=== PATIENT | female | born 1960 | race Caucasian/White ===

== ENCOUNTER 2023-10-16 11:05 | Emergency (ER) | payer OTHER, SELFPAY ==
[2023-10-16 11:21] VITALS: BP 150/100
--- NOTE | 2023-10-16 12:19 | ED.GENMED ---
History of Present Illness
General
Chief Complaint: Musculo-Skeletal Complaint
Source: patient
Exam Limitations: none
Time Seen by Provider: 10/16/23 11:42
Nursing documentation reviewed up to this point in time: agreed with
Travel History
Have you had any contact with someone who has COVID-19?: No
Do you have any symptoms of coronavirus? Fever > 100 degrees, chills, cough, shortness of breath, sore throat, loss of taste or smell, muscle aches, or headache?: No
History of Present Illness
History of Present Illness:
63-year-old female with medical history of A-fib currently on Eliquis, diabetes presenting to the emergency department after a trip and fall twisting her left foot pain mainly to the forefoot at this point. Pain worse with ambulation denies
additional concerns. No numbness or weakness.
Past History
Past History
ED Past Medical History: Arrthythmia (SVT,), Fibromyalgia, GERD and IDDM
ED Past Surgical History: Cardiac
Social History
Tobacco: Non-smoker
Alcohol: None
Drug: None
Personal: Single
Living: alone
Employment: Not employed
Family History
Family History: Diabetes
Review of Systems
Review of Systems
Allergies reviewed?: Yes
All Other Systems: ROS reviewed and negative except as documented in HPI and ROS
Phy Exam
Physical Exam
Physical Exam:
GENERAL: Alert , in no apparent distress
EYE: pupils equal and reactive
NECK: Supple, no significant adenopathy.
ENT: o/p clr, mmm.
CARDIAC: Regular rate and rhythm .
LUNGS: Clear breath sounds bilaterally, no acute respiratory distress, no wheezes/rales/rhonchi
ABDOMEN: Soft, without focal tenderness, no r/g, no cvat
NEUROLOGICAL: Alert and oriented, no focal neuro deficits
SKIN: Warm and dry, skin intact.
MUSCULOSKELETAL: Tenderness outpatient to the lateral forefoot of the left foot otherwise good range of motion of the ankle no pain to the ankle tib-fib or toes. No edema, well perfused.
PSYCH: Normal and appropriate interaction.
Course
Orders/Labs/Results
Orders:
Orders
10/16/23 11:24
Foot, Left 3 View [CR Foot - Left Min 3 Views] Urgent
Comment:
Reason For Exam: tripped on steps injuried left foot
Vital Signs
Initial and Last Documented VS:
Initial Vital Signs
Temp Pulse Resp BP Pulse Ox
98.6 F 98 16 150/100 98
10/16/23 11:21 10/16/23 11:21 10/16/23 11:21 10/16/23 11:21 10/16/23 11:21
Last Documented Vital Signs
Temp Pulse Resp BP Pulse Ox
98.6 F 98 16 150/100 98
10/16/23 11:21 10/16/23 11:21 10/16/23 11:21 10/16/23 11:21 10/16/23 11:21
MDM/Problems Addressed
MDM/Problems Addressed:
63-year-old female presenting to the emergency department today after twisting her left foot yesterday ongoing discomfort today. Tenderness mainly to the foot. No significant swelling. X-ray before without signs of fracture. Patient with likely
sprain. Plan for symptomatic treatment and follow-up as needed. Return precautions given.
*Critical Care Note
Total Time (30-74mins, 75-104mins- exclusive of procedures): Not Applicable
ED Attending Note
-
Portions of this chart may have been created with voice recognition software.� Occasional wrong word or��sound alike� substitutions may have occurred due to the inherent limitations of voice recognition software.
Discharge Plan
Departure
Patient Disposition: Home (Routine Discharge)
Date of Disposition: 10/16/23
Time of Disposition: 12:21
Patient with high blood pressure during this ER visit?: No
Condition: Good
Covid-19: Not Applicable
Discharge Problem:
Foot sprain
Instructions: Foot Sprain ED
Prescriptions:
No Action
insulin aspart U-100 [Novolog FlexPen U-100 Insulin] 300 UNITS/3 ML insulin pen
8 units SC AC Qty: 5 0RF
diltiazem HCl 180 MG capsule,extended release 24hr
180 mg PO BID 30 Days Qty: 60 0RF
apixaban [Eliquis] 5 MG tablet
5 mg PO BID 30 Days Qty: 60 0RF
insulin glargine [Lantus Solostar U-100 Insulin] 300 UNITS/3 ML insulin pen
10 units SC HS 30 Days Qty: 1 0RF
Rx Instructions:
ignore 15 unit RX
Referrals:
Khang Grier DPM [Specified Professional Personl] - Follow up in 10 days
Wendy Mackenzie CRNP [Family Provider] -
Activity Restrictions/Additional Instructions:
You can to the emergency department today with concerns of foot discomfort. Your x-ray did not show any signs of fracture. Please rest ice compress and elevate over the next week or so as symptoms will hopefully be improving. Return to the
emergency department for any worsening, new or symptoms.
Interventions
Interventions:
*Risk Screen - Suicide Last Done: 10/16/23 11:53
*General Assessment Last Done: 10/16/23 11:53
*Neglect/Abuse Screening Last Done: 10/16/23 11:53
ED- Fall Risk Assessment Last Done: 10/16/23 11:53
*ED COVID-19 Vaccine History Last Done: 10/16/23 11:21
ED-Musculoskeletal Assessment Last Done: 10/16/23 11:50
Discharge Date and Time
Print Language: LAO
[2023-10-16 12:41] VITALS: BP 143/90
== END 2023-10-16 12:53 | disposition home or self-care (01) ==
LOC: EMR 11:05
PROVIDERS: EMERGENCY PHYSICIAN Emergency Medicine; FAMILY PHYSICIAN Nurse Practitioner Family
DX: S93.602A Unspecified sprain of left foot, initial encounter (principal); W01.0XXA Fall on same level from slipping, tripping and stumbling without subsequent striking against object, initial encounter; I48.91 Unspecified atrial fibrillation; E11.9 Type 2 diabetes mellitus without complications
CPT/HCPCS: 99283; 73630

== ENCOUNTER 2024-09-29 21:10 | Emergency (ER) | payer OTHER, SELFPAY ==
[2024-09-29 21:12] VITALS: BP 169/98
--- NOTE | 2024-09-29 23:51 | ED.GENMED ---
History of Present Illness
General
Chief Complaint: Dental Problem
Source: patient
Exam Limitations: none
Time Seen by Provider: 09/29/24 23:38
Nursing documentation reviewed up to this point in time: agreed with
History of Present Illness
History of Present Illness:
64-year-old female left lower molar pain with some swelling family fell out a few years ago told that she needed extraction she elected not to have it extracted had increased pain and swelling recently, no fevers
Past History
Past History
ED Past Medical History: Arrthythmia (SVT,), Fibromyalgia, GERD and IDDM
ED Past Surgical History: Cardiac
Social History
Tobacco: Non-smoker
Alcohol: None
Drug: None
Personal: Single
Living: alone
Employment: Not employed
Family History
Family History: Diabetes
Review of Systems
Review of Systems
All Other Systems: Not applicable
Constitutional: Denies fever
EENT: Reports mouth pain and mouth swelling
Respiratory: Reports no symptoms
Phy Exam
Physical Exam
Physical Exam:
Physical Exam
General: no apparent distress, not acutely ill
Neck: Left lower molar large carry no trismus, no palpable abscess no swelling under the tongue
Lungs: no acute respiratory distress.
Neuro: alert and oriented. no focal neurological deficits
Skin: no rash
Psychiatric: well kept. interactive and cooperative
Extremities: no edema.
Course
Orders/Labs/Results
Orders:
Orders
09/29/24 23:46
Acetaminophen [Tylenol] 650 mg PO NOW STA
Amoxicillin [Amoxil] 500 mg PO NOW STA
Vital Signs
Initial and Last Documented VS:
Initial Vital Signs
Temp Pulse Resp BP Pulse Ox
98.3 F 93 16 169/98 99
09/29/24 21:12 09/29/24 21:12 09/29/24 21:12 09/29/24 21:12 09/29/24 21:12
Last Documented Vital Signs
Temp Pulse Resp BP Pulse Ox
98.3 F 93 16 169/98 99
09/29/24 21:12 09/29/24 21:12 09/29/24 21:12 09/29/24 21:12 09/29/24 21:12
MDM/Problems Addressed
Differential Diagnosis Includes:
Dental caries gingivitis abscess no signs of Harsh
MDM/Problems Addressed:
Dental pain
Chronic conditions affecting care: DM
Acute Exacerbation and/or Progression of Chronic Illness: DM
*Pulse Oximetry
Patient hypoxic: no
*Critical Care Note
Total Time (30-74mins, 75-104mins- exclusive of procedures): Not Applicable
Update Note
Update Note:
Update patient offered dental block which she refused offered narcotic analgesia which she refused will start on antibiotics given number for on-call oral surgery suspect she will require a extraction
ED Attending Note
-
Portions of this chart may have been created with voice recognition software.� Occasional wrong word or��sound alike� substitutions may have occurred due to the inherent limitations of voice recognition software.
Discharge Plan
Departure
Patient Disposition: Home (Routine Discharge)
Date of Disposition: 09/29/24
Time of Disposition: 23:46
Patient with high blood pressure during this ER visit?: No
Condition: Good
Covid-19: Not Applicable
Discharge Problem:
Dental caries
Instructions: Tooth Decay, Adult (DC), Dental Pain (DC)
Prescriptions:
New
amoxicillin 500 mg tablet
500 mg PO TID Qty: 30 0RF
No Action
insulin aspart U-100 [Novolog FlexPen U-100 Insulin] 300 UNITS/3 ML insulin pen
8 units SC AC Qty: 5 0RF
diltiazem HCl 180 MG capsule,extended release 24hr
180 mg PO BID 30 Days Qty: 60 0RF
apixaban [Eliquis] 5 MG tablet
5 mg PO BID 30 Days Qty: 60 0RF
insulin glargine [Lantus Solostar U-100 Insulin] 300 UNITS/3 ML insulin pen
10 units SC HS 30 Days Qty: 1 0RF
Rx Instructions:
ignore 15 unit RX
Referrals:
Reanna Morales DDS [Active] - Next open appointment
Wendy Mackenzie CRNP [Family Provider] -
Activity Restrictions/Additional Instructions:
Call your dentist tomorrow to arrange follow-up
Or call an oral surgeon
Interventions
Interventions:
*Risk Screen - Suicide Last Done: 09/29/24 21:12
*General Assessment Last Done: 09/29/24 21:12
*Neglect/Abuse Screening Last Done: 09/29/24 21:12
*ED- Fall Risk Assessment Last Done: 09/29/24 21:12
*ED COVID-19 Vaccine History Last Done: 09/29/24 21:12
Discharge Date and Time
Print Language: [id number]
[2024-09-29 23:55] VITALS: BP 147/100
[2024-09-29] MEDS: TYLENOL 650 MG PO (23:55)
[2024-09-29] MEDS: AMOXIL 500 MG PO (23:55)
== END 2024-09-30 00:08 | disposition home or self-care (01) ==
LOC: EMR 21:10
PROVIDERS: EMERGENCY PHYSICIAN Emergency Medicine; FAMILY PHYSICIAN Nurse Practitioner Family
DX: K02.9 Dental caries, unspecified (principal); E11.9 Type 2 diabetes mellitus without complications; Z79.4 Long term (current) use of insulin
CPT/HCPCS: 99283

== ENCOUNTER → 2025-02-11 14:00 | Outpatient (REF) | payer OTHER, SELFPAY | LOC: RCS 14:00 | PROVIDERS: ATTENDING PHYSICIAN Internal Medicine Cardiovascular Disease; FAMILY PHYSICIAN Nurse Practitioner Family | DX: I48.19 Other persistent atrial fibrillation (principal) | CPT/HCPCS: 93306 ==